=== PATIENT | female | born 1950 | race Caucasian/White ===

== ENCOUNTER 2019-11-03 10:53 | Day surgery (SDC) | payer BC ==
[~2019-11-03] VITALS: Ht 175.3 cm; Wt 60.9 kg
[2019-11-03] MEDS ORDERED: MONT4 (11:41)
[2019-11-03] MEDS ORDERED: PROAIR DIGIHAL90 MCG IH (11:42)
[2019-11-03] MEDS ORDERED: MONT10T (11:42)
--- NOTE | 2019-11-03 11:45 | NUR ---
11/03/19 Michelle Galvan CALL LIGHT WITHIN REACH.
== END 2019-11-03 13:50 | disposition home or self-care (01) ==
LOC: ORSCSDS 10:53
PROVIDERS: Obstetrics & Gynecology
PROC: 0UBC7ZX Excision of Cervix, Via Natural or Artificial Opening, Diagnostic (ICD-10-PCS; principal; 2019-11-03 12:00)
DX: D06.9 Carcinoma in situ of cervix, unspecified (principal); J45.909 Unspecified asthma, uncomplicated
CPT/HCPCS: 88307; J0171; J1100; J2250; J2405; J2704; J3010; J7120

== ENCOUNTER → 2020-02-21 | Outpatient (CLI) | payer MEDICARE, BC ==
[~2020-02-21] MED LIST: ALBU90OI INH; Ativan0.5 MG PO; C COMPLEX1000 M1 PO; GABA100 PO; MECL25 PO; MONT10T; MONT10T PO; MONT4; OMEGA-3 1,0501 EACH PO; PROAIR DIGIHAL90 MCG IH; VITAMIN D33000 UNIT PO
[2020-02-22 10:20] LABS: G. vaginalis (DNA Probe) Negative (NEGATIVE); T. vaginalis (DNA Probe) Negative (NEGATIVE)
[2020-02-22 10:21] LABS: Candida species (DNA Probe) Negative (NEGATIVE)
== END | disposition home or self-care (01) ==
LOC: LAB SHORT 14:49 → LAB 14:49
PROVIDERS: Family Medicine
DX: N76.0 Acute vaginitis (principal)
CPT/HCPCS: 87480; 87510; 87660

== ENCOUNTER 2020-04-08 10:32 | Emergency (ER) | payer MEDICARE, BC ==
[~2020-04-08] VITALS: Ht 172.7 cm; Wt 59.9 kg
[~2020-04-08 10:32] MED LIST changes: -ALBU90OI INH; -Ativan0.5 MG PO; -C COMPLEX1000 M1 PO; -GABA100 PO; -MECL25 PO; -MONT10T PO; -OMEGA-3 1,0501 EACH PO; -VITAMIN D33000 UNIT PO
[2020-04-08 11:16] LABS: BASOPHILS ABSOLUTE AUTO 0.03 K/mm3 (0.00-0.23); BASOPHILS PERCENT AUTO 1 % (0-2); EOSINOPHILS ABSOLUTE AUTO 0.03 K/mm3 (0.00-0.68); EOSINOPHILS PERCENT AUTO 1 % (0-6); Hematocrit 38.6 % (33.0-51.0); Hemoglobin 12.6 g/dL (11.5-16.0); IMMATURE GRAN ABSOLUTE AUTO 0.01 K/mm3 (0.00-0.10); IMMATURE GRAN PERCENT AUTO 0 % (0-1); LYMPHOCYTES ABSOLUTE AUTO 1.29 K/mm3 (0.84-5.20); LYMPHOCYTES PERCENT AUTO 30 % (21-46); MONOCYTES ABSOLUTE AUTO 0.37 K/mm3 (0.16-1.47); MONOCYTES PERCENT AUTO 9 % (4-13); Mean Corpuscular HGB 32.1 pg (26.0-34.0); Mean Corpuscular HGB Conc 32.6 g/dL (31.5-36.5); Mean Corpuscular Volume 99 fL (80-100); Mean Platelet Volume 10.3 fL (9.1-12.4); NEUTROPHILS ABSOLUTE AUTO 2.64 K/mm3 (1.96-9.15); NEUTROPHILS PERCENT AUTO 60 % (41-73); Platelet Count 202 K/mm3 (150-400); RDW Coefficient Variation 12.1 % (11.7-14.2); RDW Standard Deviation 43.9 fL (35.1-46.3); Red Blood Cell Count 3.92 M/mm3 (3.80-5.20); White Blood Cell Count 4.37 K/mm3 (4.00-11.30)
[2020-04-08 11:19] LABS: Alanine Aminotransfer (ALT/SGP 19 U/L (12-78); Albumin, Blood 3.7 g/dL (3.4-5.0); Alk Phos 53 U/L (50-136); Anion Gap 7 mmol/L (6-16); Aspartate Aminotrans (AST/SGOT 14 U/L (12-37); Bilirubin, Total 1.1 mg/dL (0.1-1.0); Blood Urea Nitrogen 11 mg/dL (8-24); Bun/Creatinine Ratio 23.5 (12.0-20.0); CO2, Blood 24 mmol/L (21-32); Calcium, Blood 8.9 mg/dL (8.5-10.1); Chloride, Blood 111 mmol/L (98-108); Creatinine, Blood 0.47 mg/dL (0.40-1.00); Globulin, Blood 3.6 g/dL (2.2-4.0); Glomerular Filtration Rate >60 (60-); Glucose, Blood 109 mg/dL (70-99); Potassium, Blood 3.7 mmol/L (3.5-5.5); Sodium, Blood 142 mmol/L (136-145); Total Protein, Blood 7.3 g/dL (6.4-8.2)
[2020-04-08] MEDS ORDERED: ALBU90OI INH (11:59)
[2020-04-08] MEDS ORDERED: GABA100 PO (11:59)
[2020-04-08] MEDS ORDERED: MONT10T PO (11:59)
[2020-04-08 12:57] LABS: Magnesium, Blood 2.2 mg/dL (1.6-2.4); Troponin I <0.015 ng/mL (0.000-0.040)
[2020-04-08 14:04] LABS: Source, Urine Clean Catch
[2020-04-08 14:08] LABS: Appearance, Urine Clear (Clear); Bilirubin, Urine Neg (Neg); Blood, Urine 3+ (Neg); Color, Urine Yellow (P-Yellow); Glucose Qualitative, Urine Neg (Neg); Ketones, Urine 2+ (Neg); Leukocyte Esterase, Urine Neg (Neg); Nitrite, Urine Neg (Neg); Protein, Urine Neg (Neg); Urobilinogen, Urine NORM (Normal)
[2020-04-08 14:16] LABS: Bacteria Not Seen /hpf; Red Blood Cells, Urine Not Seen /hpf (0-2); Squamous Epithelial Cells Few /hpf (Few); White Blood Cells, Urine 0-2 /hpf (0-5)
[2020-04-08] MEDS ORDERED: Ativan0.5 MG PO (15:13)
== END 2020-04-08 15:44 | disposition home or self-care (01) ==
LOC: ER 10:32
PROVIDERS: Emergency Medicine
DX: F41.9 Anxiety disorder, unspecified (principal); J45.909 Unspecified asthma, uncomplicated; Z88.2 Allergy status to sulfonamides; Z88.0 Allergy status to penicillin; Z88.5 Allergy status to narcotic agent; Z79.899 Other long term (current) drug therapy
CPT/HCPCS: 36415; 70450; 71045; 80053; 81001; 82607; 82746; 83735; 84443; 84484; 85025; 93005; 93010; 96374; 99285-25; J2060; J7120

== ENCOUNTER → 2020-05-23 | Outpatient (CLI) | payer MEDICARE, OTHER ==
[~2020-05-23] MED LIST changes: +ALBU90OI INH; +Ativan0.5 MG PO; +C COMPLEX1000 M1 PO; +GABA100 PO; +MECL25 PO; +MONT10T PO; +OMEGA-3 1,0501 EACH PO; +VITAMIN D33000 UNIT PO
[2020-05-24 16:07] LABS: HPV 16 Negative (Negative); HPV 18 Negative (Negative); HPV OTHER HR TYPES Negative (Negative)
== END | disposition home or self-care (01) ==
LOC: LAB 13:40 → LAB SHORT 13:40
PROVIDERS: Obstetrics & Gynecology
DX: D06.9 Carcinoma in situ of cervix, unspecified (principal)
CPT/HCPCS: 87624; 88142

== ENCOUNTER 2020-06-29 00:35 | Day surgery (SDC) | payer MEDICARE, BC ==
[~2020-06-29 00:35] MED LIST changes: -C COMPLEX1000 M1 PO; -MECL25 PO; -OMEGA-3 1,0501 EACH PO; -VITAMIN D33000 UNIT PO
[2020-06-29] MEDS ORDERED: C COMPLEX1000 M1 PO (09:44)
[2020-06-29] MEDS ORDERED: MECL25 PO (09:45)
[2020-06-29] MEDS ORDERED: OMEGA-3 1,0501 EACH PO (09:46)
[2020-06-29] MEDS ORDERED: VITAMIN D33000 UNIT PO (09:47)
== END 2020-06-29 10:08 | disposition home or self-care (01) ==
LOC: ATC 00:35
DX: R00.2 Palpitations (principal); I48.0 Paroxysmal atrial fibrillation; F17.200 Nicotine dependence, unspecified, uncomplicated; Z79.01 Long term (current) use of anticoagulants
CPT/HCPCS: 36415; 80400; 82533; 96372; J0834

== ENCOUNTER → 2020-11-28 | Outpatient (CLI) | payer MEDICARE, OTHER, BC ==
[~2020-11-28] MED LIST changes: +C COMPLEX1000 M1 PO; +MECL25 PO; +OMEGA-3 1,0501 EACH PO; +VITAMIN D33000 UNIT PO
[2020-11-29 14:11] LABS: HPV 16 Negative (Negative); HPV 18 Negative (Negative); HPV OTHER HR TYPES Negative (Negative)
== END | disposition home or self-care (01) ==
LOC: LAB 11:06 → LAB SHORT 11:06
PROVIDERS: Obstetrics & Gynecology
DX: D06.9 Carcinoma in situ of cervix, unspecified (principal)
CPT/HCPCS: 87624; 88142

== ENCOUNTER 2022-01-31 14:48 | Emergency (ER) | payer MEDICARE, BC ==
[~2022-01-31] VITALS: Ht 170.2 cm; Wt 59.0 kg
[2022-01-31 15:54] LABS: BASOPHILS ABSOLUTE AUTO 0.01 K/mm3 (0.00-0.23); BASOPHILS PERCENT AUTO 0 % (0-2); EOSINOPHILS PERCENT AUTO 0 % (0-6); Hematocrit 41.3 % (33.0-51.0); Hemoglobin 14.1 g/dL (11.5-16.0); IMMATURE GRAN ABSOLUTE AUTO 0.01 K/mm3 (0.00-0.10); IMMATURE GRAN PERCENT AUTO 0 % (0-1); LYMPHOCYTES ABSOLUTE AUTO 0.56 K/mm3 (0.84-5.20); LYMPHOCYTES PERCENT AUTO 19 % (21-46); MONOCYTES ABSOLUTE AUTO 0.33 K/mm3 (0.16-1.47); MONOCYTES PERCENT AUTO 11 % (4-13); Mean Corpuscular HGB 33.3 pg (26.0-34.0); Mean Corpuscular HGB Conc 34.1 g/dL (31.5-36.5); Mean Corpuscular Volume 97 fL (80-100); NEUTROPHILS ABSOLUTE AUTO 1.99 K/mm3 (1.96-9.15); NEUTROPHILS PERCENT AUTO 69 % (41-73); Platelet Count 137 K/mm3 (150-400); RDW Coefficient Variation 12.7 % (11.7-14.2); RDW Standard Deviation 45.4 fL (35.1-46.3); Red Blood Cell Count 4.24 M/mm3 (3.80-5.20)
[2022-01-31 16:22] LABS: Albumin, Blood 3.8 g/dL (3.4-5.0); Albumin/Globulin Ratio 1.1 (0.8-1.8); Bilirubin, Total 0.7 mg/dL (0.1-1.0); Bun/Creatinine Ratio 30.8 (12.0-20.0); Calcium, Blood 8.7 mg/dL (8.5-10.1); Creatinine, Blood 0.49 mg/dL (0.40-1.00); Globulin, Blood 3.6 g/dL (2.2-4.0); Total Protein, Blood 7.4 g/dL (6.4-8.2)
[2022-01-31] MEDS ORDERED: CYMBALTA30 M2 PO (16:59)
[2022-01-31] MEDS ORDERED: EUTHYROX88 MC1 PO (17:00)
[2022-01-31] MEDS ORDERED: KETO15TC TOP (17:02)
[2022-01-31] MEDS ORDERED: ELIQUIS5 M3 PO (17:03)
[2022-01-31] MEDS ORDERED: FLUDROCORTISON0.1 M2 PO (17:03)
[2022-01-31] MEDS ORDERED: PACERONE100 M1 PO (17:04)
[2022-01-31] MEDS ORDERED: K-Dur20 MEQ PO (17:06)
[2022-01-31 18:46] LABS: Influenza A, PCR NEGATIVE (NEGATIVE); Influenza B, PCR NEGATIVE (NEGATIVE); Resp Syncytial Virus, PCR NEGATIVE (NEGATIVE)
[2022-01-31 19:59] LABS: SARS-Cov-2 (COVID-19) PCR, MMC POSITIVE (NEGATIVE)
[2022-01-31] MEDS ORDERED: ONDA4ODT MM (20:15)
== END 2022-01-31 20:19 | disposition home or self-care (01) ==
LOC: ER 14:48
PROVIDERS: Emergency Medicine; Student in an Organized Health Care Education/Training Program
DX: U07.1 COVID-19 (principal); D72.819 Decreased white blood cell count, unspecified; R10.9 Unspecified abdominal pain; J45.909 Unspecified asthma, uncomplicated; I48.91 Unspecified atrial fibrillation; Z79.01 Long term (current) use of anticoagulants; Z88.2 Allergy status to sulfonamides; Z88.6 Allergy status to analgesic agent; Z88.0 Allergy status to penicillin; Z88.5 Allergy status to narcotic agent; Z79.899 Other long term (current) drug therapy
CPT/HCPCS: 0241U; 36415; 76705; 80053; 83690; 85025; 93005; 93010; A9270; J2405; J7030